=== PATIENT | female | born 2000 | race Caucasian/White ===

== ENCOUNTER 2021-03-04 16:22 | Observation (INO) | payer MEDICAID ==
[~2021-03-04] VITALS: Ht 160 cm; Wt 91.2 kg
== END 2021-03-04 17:45 | disposition home or self-care (01) ==
LOC: SPU 16:22
PROVIDERS: ADMIT Obstetrics & Gynecology; ATTEND Obstetrics & Gynecology
DX: O26.853 Spotting complicating pregnancy, third trimester (principal); O36.8130 Decreased fetal movements, third trimester, not applicable or unspecified; Z3A.40 40 weeks gestation of pregnancy
CPT/HCPCS: 81002; G0378